=== PATIENT | male | born 1980 | race Caucasian/White ===

== ENCOUNTER 2021-06-21 16:43 | Inpatient (IN) | payer OTHER ==
[~2021-06-21] VITALS: Ht 172.7 cm; Wt 77.1 kg
[2021-06-21 17:23] LABS: BASOPHILS % 0.6 % (0.0-2.0); EOSINOPHILS % 8.7 % (0.0-5.0); HEMATOCRIT. 35.4 % (42.0-52.0); HEMOGLOBIN. 12.6 g/dL (14.0-18.0); LYMPHOCYTES % 21.7 % (20.0-50.0); MEAN CORPUSCULAR HEMOGLOBIN 30.7 pg (28.0-32.0); MEAN CORPUSCULAR VOLUME 86.3 fL (80.0-94.0); MEAN PLATELET VOLUME 8.4 fl (7.4-10.4); PLATELET 206 x1000/uL (130-400); RED CELL DISTRIBUTION WIDTH 13.4 % (11.6-14.6)
[2021-06-21 17:29] LABS: CHLORIDE 101 mEq/L (98-107)
[2021-06-21 17:33] LABS: ETHANOL BLOOD < 10 mg/dL
[2021-06-21 17:36] LABS: LDL CHOLESTEROL 101 mg/dL (5-100)
[2021-06-21] MEDS ORDERED: ASPIRIN 325MG EC TABLET PO ONE (18:00)
[2021-06-21 18:39] LABS: CLARITY URINE CLEAR (CLEAR); COLOR URINE YELLOW (YELLOW); KETONES URINE TRACE (NEGATIVE); LEUKOCYTE ESTERASE URINE NEGATIVE (NEGATIVE); NITRITE URINE NEGATIVE (NEGATIVE); OCCULT BLOOD URINE NEGATIVE (NEGATIVE); PH URINE 5.5 (4.5-8.0); PROTEIN URINE 1+ (NEGATIVE); SPECIFIC GRAVITY URINE 1.039 (1.005-1.030); UROBILINOGEN URINE 0.2 E.U./dL (0.2-1.0)
[2021-06-21 19:03] LABS: *AMPHETAMINES SCREEN URINE PRESUMTIVE POSITIVE (NEGATIVE); *BARBITURATES SCREEN URINE NEGATIVE (NEGATIVE); *BENZODIAZEPINES SCREEN URINE NEGATIVE (NEGATIVE); *COCAINE SCREEN URINE NEGATIVE (NEGATIVE); CANNABINOID URINE SCREEN NEGATIVE (NEGATIVE); METHADONE URINE SCREEN NEGATIVE (NEGATIVE); OPIATES URINE SCREEN NEGATIVE (NEGATIVE); PHENCYCLIDINE URINE SCREEN NEGATIVE (NEGATIVE)
[2021-06-21] MEDS ORDERED: ACETAMINOPHEN 325MG TABLET PO PRN (22:45)
[2021-06-21 23:03] VITALS: BP 155/97
[2021-06-21 23:08] VITALS: BP 155/97
[2021-06-21] MEDS: AMLODIPINE 10MG TABLET PO SCH (23:23)
[2021-06-21] MEDS: ATORVASTATIN CALCIUM 40MG TABLET PO SCH (23:23)
[2021-06-21] MEDS: ENOXAPARIN 40MG/0.4ML SYR SUBCUT SCH (23:23)
[2021-06-22 00:20] VITALS: BP 162/105
[2021-06-22 04:00] VITALS: BP 169/98
[2021-06-22 06:52] LABS: BASOPHILS % 0.4 % (0.0-2.0); EOSINOPHILS % 10.7 % (0.0-5.0); HEMOGLOBIN. 12.7 g/dL (14.0-18.0); LYMPHOCYTES % 31.8 % (20.0-50.0); MEAN CORPUSCULAR HEMOGLOBIN 30.4 pg (28.0-32.0); MEAN CORPUSCULAR VOLUME 88.3 fL (80.0-94.0); MONOCYTES % 8.6 % (2.0-8.0); NEUTROPHILS % 48.5 % (40.0-76.0); PLATELET 201 x1000/uL (130-400); RED BLOOD CELL COUNT 4.19 mill/uL (4.7-6.1); RED CELL DISTRIBUTION WIDTH 13.3 % (11.6-14.6)
[2021-06-22 08:05] VITALS: BP 149/106
[2021-06-22] MEDS ORDERED: ASPIRIN 81MG TABLET PO SCH (09:00)
[2021-06-22] MEDS: AMLODIPINE 10MG TABLET PO SCH (09:59)
[2021-06-22 12:10] VITALS: BP 145/93
[2021-06-22 14:38] LABS: BG BASE EXCESS 2.1 mmol/L (-2.0-2.0); BG CARBOXYHEMOGLOBIN 0.6 % (0.5-1.5); BG DEOXYHEMOGLOBIN 4.5 % (0.0-5.0); BG HCO3 ACT 26.8 mmol/L (22.0-26.0); BG METHEMOGLOBIN 0.3 % (0.0-1.5); BG OXYGEN SATURATION 95.5 % (92.0-98.5); BG OXYHEMOGLOBIN 94.6 % (94.0-97.0); BG PCO2 42.1 mmHg (35.0-45.0); BG PH 7.422 (7.350-7.450); BG PO2 77.2 mmHg (75.0-100.0); BG SAMPLE SITE RIGHT RADIAL; BG TOTAL HEMOGLOBIN 12.9 g/dL (12.0-18.0); BG VENT MODE ROOM AIR
[2021-06-22] MEDS ORDERED: POTASSIUM CHLORIDE 20MEQ TABLET SR PO NR (17:00)
[2021-06-22] MEDS: BLOOD SUGAR DIAGNOSTIC STRIP TEST SCH ×2 (17:58→21:00)
[2021-06-22 20:51] VITALS: BP 131/88
[2021-06-22] MEDS: ATORVASTATIN CALCIUM 40MG TABLET PO SCH (21:02)
[2021-06-22] MEDS: ENOXAPARIN 40MG/0.4ML SYR SUBCUT SCH (21:03)
[2021-06-23 00:40] VITALS: BP 149/97
[2021-06-23 04:00] VITALS: BP 162/104
[2021-06-23] MEDS ORDERED: CLONIDINE 0.1MG TABLET PO PRN (05:00)
[2021-06-23 05:16] LABS: T4 FREE 0.88 ng/dL (0.76-1.46)
[2021-06-23] MEDS: BLOOD SUGAR DIAGNOSTIC STRIP TEST SCH ×2 (06:30→12:20)
[2021-06-23 07:57] LABS: PROTHROMBIN TIME 10.7 sec (9.6-11.0)
[2021-06-23] MEDS: AMLODIPINE 10MG TABLET PO SCH (08:34)
[2021-06-23 08:35] VITALS: BP 147/101
[2021-06-23] MEDS ORDERED: GADOTERATE MEGLUMINE 5 MMOL/10 ML VIAL IV ONE (08:59)
[2021-06-23] MEDS ORDERED: CLOPIDOGREL 75MG TABLET PO SCH (09:00)
[2021-06-23] MEDS ORDERED: LEVETIRACETAM 500MG TABLET PO SCH (09:00)
[2021-06-23 12:33] VITALS: BP 141/86
[2021-06-23] MEDS ORDERED: DEXTROSE 50% WATER 50ML SYRINGE IV PRN (13:45)
[2021-06-23] MEDS ORDERED: CLOP75TA15 PO (14:19)
[2021-06-23] MEDS ORDERED: AMLO10TA80 PO (14:19)
[2021-06-23] MEDS ORDERED: LIP40 PO (14:19)
[2021-06-23] MEDS ORDERED: INSULIN LISPRO 100 UNITS/ML SUBCUT NR (16:00)
[2021-06-23 16:10] VITALS: BP 141/90
[2021-06-23 17:07] VITALS: BP 141/90
[2021-06-23] MEDS ORDERED: BLOOD SUGAR DIAGNOSTIC STRIP TEST SCH (17:20)
[2021-06-23] MEDS ORDERED: INSULIN LISPRO 100 UNITS/ML SUBCUT SCH (17:50)
[2021-06-24 01:48] LABS: FOLIC ACID (FOLATE) SERUM 3.6 ng/mL (>5.38)
[2021-06-25 19:08] LABS: ANTI-CARDIOLIPIN AB IGA < 9 APL U/mL (0-11); ANTI-CARDIOLIPIN AB IGG < 9 GPL U/mL (0-14); ANTI-CARDIOLIPIN AB IGM < 9 MPL U/mL (0-12)
[2021-06-27 09:11] LABS: ANTI-THROMBIN ACTIVITY 105 % (75-135); PROTEIN C FUNCTIONAL 131 % (73-180)
== END 2021-06-23 19:00 | disposition home or self-care (01) | DRG 812 ==
LOC: ER 16:43 → 6WST 19:31 → EDBEDREQ 19:34 → EDBEDREQTM 19:34 → EDBEDREQSVC 19:34 → ENRESERV 20:33
PROVIDERS: ADMIT Internal Medicine; ATTEND Internal Medicine
DX: T43.621A Poisoning by amphetamines, accidental (unintentional), initial encounter (principal); I63.9 Cerebral infarction, unspecified; G93.6 Cerebral edema; N17.0 Acute kidney failure with tubular necrosis; G81.91 Hemiplegia, unspecified affecting right dominant side; I16.1 Hypertensive emergency; I10 Essential (primary) hypertension; D64.9 Anemia, unspecified; E78.00 Pure hypercholesterolemia, unspecified; E87.6 Hypokalemia; F17.210 Nicotine dependence, cigarettes, uncomplicated; R29.810 Facial weakness; R53.81 Other malaise; Y92.89 Other specified places as the place of occurrence of the external cause; Z71.51 Drug abuse counseling and surveillance of drug abuser; F19.10 Other psychoactive substance abuse, uncomplicated; F15.90 Other stimulant use, unspecified, uncomplicated
CPT/HCPCS: 36415; 36600; 70496; 70498; 70551; 70552; 71045; 80048; 80053; 80061; 80305; 80320; 81003; 81400; 81403; 81407; 81479; 82375; 82607; 82746; 82805; 82962; 83036; 83721; 84439; 84443; 84481; 84484; 85025; 85300; 85303; 85306; 85384; 86147; 92523; 93005; 93306; 93880; 97116; 97162; 97166; 99291; A9577; J1650; J1815; G0480